=== PATIENT | male | born 1995 | race African-American/Black ===

== ENCOUNTER 2023-10-04 11:27 | Emergency (ER) | payer OTHER ==
[~2023-10-04] VITALS: Ht 177.8 cm; Wt 98.0 kg
[2023-10-04 11:35] VITALS: O2SAT 97
[2023-10-04 14:00] VITALS: BP 122/84; PULSE 77; RESP 18; TEMP 98.2
== END 2023-10-04 14:02 | disposition home or self-care (01) ==
LOC: ER 11:27
DX: S61.211A Laceration without foreign body of left index finger without damage to nail, initial encounter (principal); X58.XXXA Exposure to other specified factors, initial encounter; Y93.89 Activity, other specified; Y92.89 Other specified places as the place of occurrence of the external cause; Y99.8 Other external cause status
CPT/HCPCS: 29130; 73140; 99283